=== PATIENT | female | born 1990 ===

== ENCOUNTER 2017-06-10 23:29 | Emergency (ER) | payer MEDICAID ==
[2017-06-10 23:30] VITALS: BMI 39.5
[2017-06-10 23:48] VITALS: BP 113/68; PULSE 68; RESP 18; TEMP 97.8; O2SAT 100
[2017-06-11 00:51] LABS: BASO # 0.1 K/uL (0.0-0.2); BASO % 1.1 % (0.0-2.0); EOS # 0.1 K/uL (0.0-0.7); EOS % 1.6 % (0.0-4.0); HEMOGLOBIN 12.4 g/dL (12.0-16.0); LYMPH # 2.3 K/uL (1.0-4.3); LYMPH % 33.8 % (20.0-40.0); MEAN CELL VOLUME 85.1 fl (81.0-99.0); MEAN CORPUSCULAR HEMOGLOBIN 27.6 pg (27.0-31.0); MEAN CORPUSCULAR HGB CONC 32.4 g/dL (33.0-37.0); MEAN PLATELET VOLUME 10.6 fl (7.2-11.7); MONO # 0.5 K/uL (0.0-0.8); MONO % 6.6 % (0.0-10.0); NEUT # 3.9 K/uL (1.8-7.0); NEUT % 56.9 % (50.0-75.0); RBC 4.49 Mil/uL (3.80-5.20); RED CELL DISTRIBUTION WIDTH 13.8 % (11.5-14.5); WHITE BLOOD COUNT 6.8 K/uL (4.8-10.8)
[2017-06-11 00:59] LABS: BLOOD UREA NITROGEN 14 mg/dl (7-17); CALCIUM 9.1 mg/dL (8.4-10.2); GFR AFRICAN-AMERICAN > 60; GFR NON-AFRICAN AMERICAN > 60
--- NOTE | 2017-06-11 01:39 | ED PDOC ---
HPI: Female Pain Time Seen by Provider: 06/10/17 23:52 Chief Complaint (Nursing): Female Genitourinary Chief Complaint (Provider): Female Genitourinary History Per: Patient History/Exam Limitations: no limitations Onset/Duration Of Symptoms: Hrs (8 hours ago) Current Symptoms Are (Timing): Still Present Additional Complaint(s): 26 yo female presents today complaining of constant discomfort, pain, and vaginal bleeding, onset of 8 hours ago. 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 However, her explosive ordnance disposal technician was unable to remove the IUD because it is embedded in her uterus. Of note, patient reports seeing tissue come out of he rvagina that looked similar to when she had a miscarriage. Past Medical History Reviewed: Historical Data Vital Signs: Last Vital Signs Temp 97.8 F 06/10/17 23:43 Pulse 68 06/10/17 23:43 Resp 18 06/10/17 23:43 BP 113/68 06/10/17 23:43 Pulse Ox 100 06/10/17 23:43 - Medical History PMH: Bipolar Disorder - Surgical History Surgical History: No Surg Hx - Family History Family History: States: Unknown Family Hx - Social History Current smoker - smoking cessation education provided: No Ex-Smoker (has not smoked in the last 12 months): No Alcohol: None Drugs: Denies - Immunization History Hx Tetanus Toxoid Vaccination: No Hx Influenza Vaccination: No Hx Pneumococcal Vaccination: No - Home Medications Home Medications: Ambulatory Orders Medication Instructions Recorded Nitrofurantoin Macrocrystals 100 mg PO BID #10 cap 04/17/14 [Macrobid] Vitamins [ 1 Plus 1 tab PO DAILY #30 tab 04/17/14 Iron] Amoxicillin [Amoxil] 875 mg PO BID #20 tab 05/18/14 Naproxen [Naprosyn] 500 mg PO BID #30 tablet 06/11/17 - Allergies Allergies/Adverse Reactions: Allergies Allergy/AdvReac Type Severity Reaction Status Date / Time No Known Allergies Allergy Verified 11/10/14 15:13 Review of Systems ROS Statement: Except As Marked, All Systems Reviewed And Found Negative Constitutional: Negative for: Fever Genitourinary Female: Positive for: Vaginal Bleeding, Pelvic Pain Physical Exam - Reviewed Nursing Documentation Reviewed: Yes Vital Signs Reviewed: Yes - Physical Exam Appears: Positive for: Well, Non-toxic, No Acute Distress Head Exam: Positive for: ATRAUMATIC, NORMAL INSPECTION, NORMOCEPHALIC Skin: Positive for: Normal Color, Warm, DRY Eye Exam: Positive for: EOMI, Normal appearance, PERRL ENT: Positive for: Normal ENT Inspection Neck: Positive for: Normal, Painless ROM Cardiovascular/Chest: Positive for: Regular Rate, Rhythm. Negative for: Murmur Respiratory: Positive for: Normal Breath Sounds. Negative for: Respiratory Distress Gastrointestinal/Abdominal: Positive for: Normal Exam, Soft. 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 Negative for: Tender Adnexa Back: Positive for: Normal Inspection Extremity: Positive for: Normal ROM. Negative for: Pedal Edema, Deformity Neurologic/Psych: Positive for: Alert, Oriented. Negative for: Motor/Sensory Deficits - Laboratory Results Result Diagrams: 06/11/17 00:46 06/11/17 00:46 - ECG O2 Sat by Pulse Oximetry: 100 (RA) Pulse Ox Interpretation: Normal Medical Decision Making Medical Decision Making: Time: --00:00 Impression: --pain secondary to manipulation of iud Plan: --Ed urine dip --Upreg --Chlamydia/GC RNA --Toradol 30mg IVP --culture Genital --Transvaginal US Reassess --02:39 Ultrasound TRANSVAGINAL Exam Date: 06/11/17 This imaging exam was performed at [facility] EXAM: US Pelvis, Transvaginal US Duplex Arterial/Venous of the Pelvis, Complete CLINICAL HISTORY: 26 years old, female; Pain; Pelvic pain; Additional info: Pelvic pain, vb, iud TECHNIQUE: Real-time transvaginal pelvic ultrasound (complete) with image documentation. Transvaginal imaging was used for better evaluation of the endometrium and adnexa. Real-time duplex ultrasound scan of the arterial and venous flow of the pelvis with color Doppler flow and spectral waveform analysis. COMPARISON: No relevant prior studies available. FINDINGS: Uterus/cervix: There is a IUD in the lower uterine segment/cervix. Correlation with MANAGER TAX evaluation is recommended. The uterus is retroverted and measures 9.5 x 5.6 x 6.8 cm. The endometrial stripe measures 9 mm. Right ovary: The right ovary measures 3.7 x 1.8 x 1.6 cm. Right ovarian dominant follicle measuring 0.9 x 1.2 x 1.0 cm. Duplex assessment demonstrates presence of color Doppler signal and spectral Doppler waveform in right ovary. No torsion. Left ovary: The left ovary measures 2.6 x 1.9 x 1.4 cm. Duplex assessment demonstrates presence of color Doppler signal and spectral Doppler waveform in left ovary. No torsion. Free fluid: Moderate to large amount of free pelvic fluid. IMPRESSION: 1. There is a IUD in the lower uterine segment/cervix. Correlation with MANAGER TAX evaluation is recommended. 2. Moderate to large amount of free pelvic fluid. 430AM Patient states she's feeling better, vitals stable. Case discussed with Dr. Smith who states that patient will need to go to OR routinely to have it removed, does not need urgent removal at this time if patient is stable. Free fluid likely 2/2 to cyst or trauma from previous attempt at removal. Patient lying flat on abdomen reporting lessening of pain. Return precautions were discussed such as worsening pain, fevers, vomiting, worsening vaginal bleeding, lightheadedness, dizziness, or other concerning symptoms. Scribe Attestation: Documented by Nahun Gramajo acting as a scribe for Sachin Hendrickson MD. Provider Attestation: All medical record entries made by the Scribe were at my direction and personally dictated by me. I have reviewed the chart and agree that the record accurately reflects my personal performance of the history, physical exam, medical decision making, and the department course for this patient. I have also personally directed, reviewed, and agree with the discharge instructions and disposition. Disposition - Clinical Impression Clinical Impression: Pelvic pain - Disposition [facility] Roxana Smith MD [Staff Provider] - Disposition: Routine/Home Disposition Time: 04:30 Condition: IMPROVED Prescriptions: Naproxen [Naprosyn] 500 mg PO BID #30 tablet Instructions: Acute Pelvic Pain Forms: [employer] ([employer])
[2017-06-11 02:34] LABS: SQUAMOUS EPITHIAL 9 /hpf (0-5); URINE BACTERIA RARE (<OCC); URINE BILIRUBIN NEGATIVE (NEGATIVE); URINE BLOOD MODERATE (NEGATIVE); URINE CLARITY CLOUDY (Clear); URINE COLOR YELLOW (YELLOW); URINE GLUCOSE (UA) NEG (Normal); URINE LEUKOCYTE ESTERASE LARGE Leu/uL (Negative); URINE NITRATE NEGATIVE (NEGATIVE); URINE PROTEIN 30 mg/dL (NEGATIVE)
--- NOTE | 2017-06-11 02:39 | US ---
EXAM: US Pelvis, Transvaginal US Duplex Arterial/Venous of the Pelvis, Complete CLINICAL HISTORY: 26 years old, female; Pain; Pelvic pain; Additional info: Pelvic pain, vb, iud TECHNIQUE: Real-time transvaginal pelvic ultrasound (complete) with image documentation. Transvaginal imaging was used for better evaluation of the endometrium and adnexa. Real-time duplex ultrasound scan of the arterial and venous flow of the pelvis with color Doppler flow and spectral waveform analysis. COMPARISON: No relevant prior studies available. FINDINGS: Uterus/cervix: There is a IUD in the lower uterine segment/cervix. Correlation with RESOLUTION MANAGER evaluation is recommended. The uterus is retroverted and measures 9.5 x 5.6 x 6.8 cm. The endometrial stripe measures 9 mm. Right ovary: The right ovary measures 3.7 x 1.8 x 1.6 cm. Right ovarian dominant follicle measuring 0.9 x 1.2 x 1.0 cm. Duplex assessment demonstrates presence of color Doppler signal and spectral Doppler waveform in right ovary. No torsion. Left ovary: The left ovary measures 2.6 x 1.9 x 1.4 cm. Duplex assessment demonstrates presence of color Doppler signal and spectral Doppler waveform in left ovary. No torsion. Free fluid: Moderate to large amount of free pelvic fluid. IMPRESSION: 1. There is a IUD in the lower uterine segment/cervix. Correlation with RESOLUTION MANAGER evaluation is recommended. 2. Moderate to large amount of free pelvic fluid.
== END 2017-06-11 05:10 | disposition home or self-care (01) ==
LOC: H.ER 23:29
DX: R10.2 Pelvic and perineal pain (principal)
CPT/HCPCS: 76830; 80048; 81003; 85025; 87086; 96374; 99283; J1885